=== PATIENT | female | born 1965 | race Two or more races ===

== ENCOUNTER → 2024-08-25 | Outpatient (CLI) | payer MEDICAID, SELFPAY ==
--- NOTE | 2024-08-25 15:34 | XR_ITS ---
Examination: Shoulder,right, 3 views Technique: Shoulder AP internal rotation, AP external rotation, Y view shoulder, 3 views Exam date and time :04/27/2024 1539 hours INDICATIONS: Patient fell 8 days ago with injury to the shoulder, shoulder pain. FINDINGS: No shoulder fracture or dislocation. No AC joint separation. IMPRESSION: No shoulder fracture or dislocation
--- NOTE | 2024-08-25 15:34 | XR_ITS ---
Examination: Right elbow 2 views Technique one AP lateral right elbow 2 views Date and time: August 25, 2024 1548 hours INDICATIONS: Hit the elbow 6 days ago elbow pain. FINDINGS: No fracture or dislocation. No elbow effusion IMPRESSION: No fracture or dislocation
== END | disposition home or self-care (01) ==
LOC: SDIM 15:28
PROVIDERS: PCP Nurse Practitioner Family; Referring Provider Nurse Practitioner Family; Visit Provider Nurse Practitioner Family
DX: S49.91XA Unspecified injury of right shoulder and upper arm, initial encounter (principal); S59.901A Unspecified injury of right elbow, initial encounter; W18.30XA Fall on same level, unspecified, initial encounter
CPT/HCPCS: 73030; 73070

== ENCOUNTER 2024-08-29 06:40 | Day surgery (SDC) | payer MEDICAID, SELFPAY ==
[2024-08-26 15:42] VITALS: BMI 25.7
[2024-08-29] VITALS (9 sets, daily range): BP systolic 134–177; BP diastolic 67–92; PULSE 63–84; RESP 11–21; TEMP 36.2–36.8; O2SAT 98–100; BMI 25.7
[2024-08-29] MEDS: MIDAZOLAM INJ 1 MG/ML VIAL 2 ML (ASD USE ONLY) 2 MG IVP (07:25)
[2024-08-29] MEDS: SODIUM CHLORIDE 0.9% 500 ML 500 ML 20 ML IV (07:25)
[2024-08-29] MEDS: DiphenhydrAMINE INJ 50 MG/ML VIAL 25 MG IVP (07:31)
[2024-08-29] MEDS: fentaNYL CIT INJ 50 mCg/ML AMP 2ML (ASD USE ONLY) IVP (07:31)
== END 2024-08-29 08:20 | disposition home or self-care (01) ==
PROVIDERS: PCP Physician Assistant; Referring Provider Surgery; Visit Provider Surgery
PROC: 0DBE8ZX Excision of Large Intestine, Via Natural or Artificial Opening Endoscopic, Diagnostic (ICD-10-PCS; CPT 45380; principal; 2024-08-29 07:30)
DX: Z12.11 Encounter for screening for malignant neoplasm of colon (principal); K64.1 Second degree hemorrhoids; K57.30 Diverticulosis of large intestine without perforation or abscess without bleeding
CPT/HCPCS: 45378; J1200; J2250; J3010; J7999

== ENCOUNTER → 2024-09-14 | Outpatient (CLI) | payer MEDICAID, SELFPAY ==
--- NOTE | 2024-09-14 13:15 | XR_ITS ---
Examination: Screening digital mammography, bilateral Computer aided detection 3-D breast Tomosynthesis, bilateral Date and time of exam: September 14, 2024 1315 hours Compared to mammograms dating to September 30, 2012 Indication: Screening Technique: Nonmagnified MLO, CC views of the breasts to been obtained, reconstructed from 3-D Tomosynthesis images. R2 computer aided detection program utilized for evaluation of suspicious masses and/or abnormal calcifications. 3-D Tomosynthesis images obtained. Findings: The breasts are heterogeneously dense, which may obscure small masses 10 mm focal asymmetry 3:00 position right breast Benign calcifications Impression: BI-RADS Category 0: Incomplete: Need additional imaging evaluation 10 mm focal asymmetry 3:00 position right breast, recommend follow-up spot tomographic views of this asymmetry as well as bilateral breast sonography to complete the workup
== END | disposition home or self-care (01) ==
PROVIDERS: Referring Provider Physician Assistant; Visit Provider Physician Assistant
DX: Z12.31 Encounter for screening mammogram for malignant neoplasm of breast (principal); R92.1 Mammographic calcification found on diagnostic imaging of breast; N64.89 Other specified disorders of breast
CPT/HCPCS: 77063; 77067

== ENCOUNTER → 2024-11-24 | Outpatient (CLI) | payer MEDICAID, SELFPAY ==
--- NOTE | 2024-11-24 12:30 | XR_ITS ---
Examination: Breast ultrasound, unilateral, right complete Date and time of exam: 1125 1314 hours INDICATIONS: Mammogram September 14, 2024 10 mm focal asymmetry 3:00 position right breast Technique: Real-time wills scale ultrasonographic imaging performed right breast including all 4 quadrants as well as nipple retroareolar and axillary region. Findings: 9:00 cyst 5 x 5 mm No solid nodules IMPRESSION: BI-RADS Category 2: Benign findings
--- NOTE | 2024-11-24 13:00 | XR_ITS ---
Examination: Diagnostic digital mammography, unilateral, right Computer aided detection 3-D breast Tomosynthesis, unilateral Date and time of exam: November 24, 2024 1339 hours INDICATIONS: Mammogram September 14, 2024 8mm focal asymmetry 3:00 position right breast Technique: Nonmagnified MLO, CC views of the right breast have been obtained, reconstructed from 3-D Tomosynthesis images. R2 computer aided detection program utilized for evaluation of suspicious masses and/or abnormal calcifications. 3-D Tomosynthesis images obtained. Findings: The breast is heterogeneously dense, which may obscure small masses No suspicious mass depicted However the focal asymmetry upper right breast on the spot compression view does remain, currently measuring 13 mm Impression: BI-RADS category 3: Probably benign findings Recommend 1 additional 6 month right mammogram follow-up
== END | disposition home or self-care (01) ==
PROVIDERS: PCP Nurse Practitioner Family; Referring Provider Nurse Practitioner Family; Visit Provider Nurse Practitioner Family
DX: R92.321 Mammographic fibroglandular density, right breast (principal)
CPT/HCPCS: 76641; 77061; 77065; G0279